=== PATIENT | male | born 1955 | race Caucasian/White ===

== ENCOUNTER → 2018-02-22 | Outpatient (CLI) | payer OTHER ==
--- NOTE | 2018-02-22 14:19 | Diagnostic Imaging Report ---
PROCEDURE:X-RAY RIGHT FINGER COMPARISON:None. INDICATIONS:FELL OFF LADDER, JAMMED RT. THUMB FINDINGS:Lateral subluxation of the first metacarpophalangeal joint with a suspected small avulsion fracture fragment, likely originating from the head of the metacarpal. The phalanges are intact. Overlying soft tissue swelling. CONCLUSION: lateral subluxation of the first metacarpophalangeal joint with a suspected small avulsion injury of the metacarpal head. Dictated by: Kanu Woods M.D. on 02/22/2018 at 14:23 Electronically approved by: Kanu Woods M.D. on 02/22/2018 at 14:23
== END ==
LOC: RAD 12:55
DX: S69.91XA Unspecified injury of right wrist, hand and finger(s), initial encounter (principal)